=== PATIENT | female | born 1980 | race Caucasian/White ===

== ENCOUNTER 2023-12-05 01:01 | Emergency (ER) | payer BC ==
[2023-12-05] MEDS ORDERED: Sodium Chloride 0.9% 10 ML Syringe FLUSH PRN (01:16)
[2023-12-05] MEDS ORDERED: Sodium Chloride 0.9% 2.5 ML Syringe FLUSH PRN (01:16)
[2023-12-05 01:26] LABS: HEMATOCRIT 41.5 % (37.0-47.0); MEAN CORPUSCULAR HEMOGLOBIN 28.6 pg (28.0-32.0); MEAN CORPUSCULAR HGB CONC 33.7 g/dL (32.0-36.0); MEAN CORPUSCULAR VOLUME 84.9 fL (83.0-99.0); MEAN PLATELET VOLUME 9.2 fL (9.4-12.3); PLATELET COUNT,PLT 403 K/uL (150-400); RED BLOOD CELL COUNT 4.89 M/uL (4.10-5.30)
[2023-12-05] MEDS: Sodium Chloride 0.9% 1,000 ML IV ONE (01:30)
[2023-12-05] MEDS: Ondansetron 4 MG/2 ML SDV IVPUSH ONE ×2 (01:30→03:02)
[2023-12-05] MEDS: Ketorolac 30 MG/ML SDV IVPUSH ONE (01:30)
[2023-12-05] MEDS: Morphine 4 MG/ML Syringe IVPUSH ONE ×3 (01:31→03:02)
[2023-12-05 01:39] LABS: APPEARANCE,URINE SLT CLOUDY; BILIRUBIN,URINE NEGATIVE (NEGATIVE); COLOR,URINE YELLOW; GLUCOSE,URINE NEGATIVE (NEGATIVE); KETONES,URINE NEGATIVE (NEGATIVE); LEUKOCYTE ESTERASE,URINE NEGATIVE (NEGATIVE); NITRITE,URINE NEGATIVE (NEGATIVE); OCCULT BLOOD,URINE TRACE-INTACT (NEGATIVE); PROTEIN,URINE NEGATIVE (NEGATIVE); UROBILINOGEN,URINE 0.2 EU/dL (<2.0)
[2023-12-05 01:43] LABS: BASOPHILS ABSOLUTE MAN 0.12 K/uL (0.00-0.20); BASOPHILS PERCENT MAN 1 % (0-1); EOSINOPHILS ABSOLUTE MAN 0.12 K/uL (0.00-0.45); EOSINOPHILS PERCENT MAN 1 % (0-6); LYMPHOCYTES ABSOLUTE MAN 6.33 K/uL (1.00-4.80); LYMPHOCYTES PERCENT MAN 55 % (24-44); MONOCYTES ABSOLUTE MAN 0.35 K/uL (0.00-0.80); MONOCYTES PERCENT MAN 3 % (0-8); SEG NEUTROPHILS PERCENT MAN 40 % (41-71)
[2023-12-05 01:46] LABS: BACTERIA,URINE FEW (NEGATIVE); HYALINE CASTS,URINE 0-1 (0-2/LPF); MUCUS,URINE LIGHT (NONE-MOD); SQUAMOUS EPITHELIAL CELLS,UR MODERATE
[2023-12-05 01:47] LABS: A/G RATIO 1.2 (0.9-1.6); ALBUMIN 3.7 g/dL (3.4-5.0); BILIRUBIN TOTAL 0.4 mg/dL (0.2-1.0); CALCIUM 9.1 mg/dL (8.5-10.1); CARBON DIOXIDE,CO2 25.8 mmol/L (21.0-32.0); CREATININE 0.9 mg/dL (0.6-1.0); EST CRCL DRUG DOSING (CG) 68.05 mL/min; POTASSIUM,K 3.5 mmol/L (3.5-5.1); PROTEIN TOTAL,TP 6.8 g/dL (6.4-8.2)
[2023-12-05] MEDS: Tamsulosin 0.4 MG Cap.ER PO ONE (02:47)
== END 2023-12-05 03:19 | disposition home or self-care (01) ==
LOC: MW.ED 01:01
DX: N20.0 Calculus of kidney (principal); E11.9 Type 2 diabetes mellitus without complications; E03.9 Hypothyroidism, unspecified; Z79.84 Long term (current) use of oral hypoglycemic drugs; Z79.899 Other long term (current) drug therapy; Z88.1 Allergy status to other antibiotic agents; Z75.8 Other problems related to medical facilities and other health care
CPT/HCPCS: 36415; 74176; 80053; 81001; 84703; 85025; 96361; 96374; 96375; 96376; 99284; A9270; J1885; J2270; J2405; J7030